=== PATIENT | male | born 1960 | race African-American/Black ===

== ENCOUNTER 2016-06-19 10:00 | Emergency (ER) | payer OTHER ==
[~2016-06-19] VITALS: Ht 195.6 cm; Wt 86.0 kg
[2016-06-19 10:03] VITALS: Ht 195.6 cm; Wt 86.0 kg
[2016-06-19] MEDS ORDERED: BACTDS PO (10:51)
[2016-06-19] MEDS ORDERED: IBUP-1542 PO (10:51)
--- NOTE | 2016-06-19 10:54 | ERD ---
ER Documentation Chief Complaint Date/Time DATE: 06/19/16 TIME: 10:52 Chief Complaint GENITAL PROBLEMS HPI This 55-year-old male presents with some genital lesions for last 3 weeks. It started approximately 1 week after unprotected intercourse. He has some sores on the under side of his glans area and a lesion at the base of his penis. There is tenderness and slight amount of discharge ulceration. He does have a history of herpes but says that it does not feel like herpes. ROS All systems reviewed and are negative except as per history of present illness. Medications Home Meds Active Scripts Ibuprofen* (Motrin*) 600 Mg Tab, 600 MG PO Q6, #15 TAB Prov:PHIL HERNANDEZ MD 06/19/16 Sulfamethoxazole-Trimethoprim* (Bactrim* DS) 800-160 Mg Tab, 1 TAB PO BID, #20 TAB Prov:PHIL HERNANDEZ MD 06/19/16 Allergies Allergies: Coded Allergies: No Known Allergy (Unverified , 06/19/16) PMhx/Soc History of Surgery: Yes (oral surgery) Anesthesia Reaction: No Hx Neurological Disorder: No Hx Respiratory Disorders: No Hx Cardiac Disorders: No Hx Psychiatric Problems: No Hx Miscellaneous Medical Probl: Yes (herpes) Hx Alcohol Use: No Hx Substance Use: Yes (daily Marijuana use) Hx Tobacco Use: No Smoking Status: Former smoker Physical Exam Vitals Vital Signs Date Time Temp Pulse Resp B/P Pulse Ox O2 Delivery O2 Flow Rate FiO2 06/19/16 10:03 97.6 73 18 134/89 99 Physical Exam Const: [] Alert, [id number] Head: Atraumatic Eyes: Normal Conjunctiva ENT: Normal External Ears, Nose and Mouth. Neck: Full range of motion..~ No meningismus. Resp: Clear to auscultation bilaterally Cardio: Regular rate and rhythm, no murmurs Abd: Soft, non tender, non distended. Normal bowel sounds Skin: No petechiae or rashes. General exam shows scabbed follicular pustule at the base of the penis on the pubis. There is a small open ulcerations on the underside of his glands which are tender. There is no induration, erythema , penile discharge appreciated. Back: No midline or flank tenderness Ext: No cyanosis, or edema Neur: Awake and alert Psych: Normal Mood and Affect Results 24 hrs Current Medications Medications (Trade) Dose Ordered Sig/Duarte Route PRN Reason Start Time Stop Time Status Last Admin Dose Admin Azithromycin (Zithromax) 2,000 mg ONCE ONCE PO 06/19/16 11:00 06/19/16 11:01 Procedures/MDM Patient presents with genital lesions which has the clinical appearance of folliculitis or staph infection. Given that he does have genital ulcers of uncertain etiology we treated for sepsis with 2 g Zithromax by mouth and RPR was obtained results pending. Urine is also sent for gonorrhea chlamydia. He will be treated with Bactrim at home instructions for further observation at home. He should follow-up with primary doctor, await lab results and return for new or worsening symptoms such as fevers, worsening redness, new or worsening symptoms as directed and aftercare instructions. Will defer treatment for gonorrhea currently until confirmatory test Departure Diagnosis: Primary Impression: Folliculitis Condition: Stable Patient Instructions: Folliculitis Additional Instructions: Lesions appear to likely be staph infection but we will treat and test for STD. STD results should be back within a week. Recheck for new or worsening symptoms with primary care doctor. PHIL HERNANDEZ MD Jun 19, 2016 10:54
[2016-06-19] MEDS ORDERED: AZITHROMYCIN 250 MG TAB PO ONE (11:00)
[2016-06-19 15:37] LABS: RAPID PLASMA REAGIN REACTIVE (NR)
== END 2016-06-19 11:15 | disposition home or self-care (01) ==
LOC: FTE 10:00
DX: L73.9 Follicular disorder, unspecified (principal); Z87.891 Personal history of nicotine dependence
CPT/HCPCS: 36415; 86592; 87591; Z7502; Z7610; 99283

== ENCOUNTER 2016-06-30 11:17 | Emergency (ER) | payer OTHER ==
[~2016-06-30] VITALS: Ht 195.6 cm; Wt 87.0 kg
[~2016-06-30 11:17] MED LIST: BACTDS PO; IBUP-1542 PO
[2016-06-30 11:30] VITALS: Ht 195.6 cm; Wt 87.0 kg
[2016-06-30] MEDS ORDERED: PENICILLIN G BENZ 2.4 MIL UNIT SYG IM ONE (13:30)
--- NOTE | 2016-06-30 13:56 | ERD ---
ER Documentation Chief Complaint Date/Time DATE: 06/30/16 TIME: 13:51 Chief Complaint RE CHECK HPI Patient is a 55-year-old male who was seen here last week and diagnosed with folliculitis around his genitals and he is taking Bactrim but he states getting no better. He is here today. The results of his lab tests. He states this all started after unprotected sex. He denies fever. He denies any bleeding or discharge from his penis. He states he has to ulcerated lesions on his penis. ROS All systems reviewed and are negative except as per history of present illness. Medications Home Meds Active Scripts Ibuprofen* (Motrin*) 600 Mg Tab, 600 MG PO Q6, #15 TAB Prov:PHIL HERNANDEZ MD 06/19/16 Sulfamethoxazole-Trimethoprim* (Bactrim* DS) 800-160 Mg Tab, 1 TAB PO BID, #20 TAB Prov:PHIL HERNANDEZ MD 06/19/16 Allergies Allergies: Coded Allergies: No Known Allergy (Unverified , 06/30/16) PMhx/Soc History of Surgery: Yes (oral surgery) Anesthesia Reaction: No Hx Neurological Disorder: No Hx Respiratory Disorders: No Hx Cardiac Disorders: No Hx Psychiatric Problems: No Hx Miscellaneous Medical Probl: Yes (herpes) Hx Alcohol Use: No Hx Substance Use: Yes (daily Marijuana use) Hx Tobacco Use: No Smoking Status: Unknown if ever smoked FmHx Family History: No diabetes Physical Exam Vitals Vital Signs Date Time Temp Pulse Resp B/P Pulse Ox O2 Delivery O2 Flow Rate FiO2 06/30/16 11:30 98.2 92 19 136/78 100 Physical Exam General: well developed, well nourished, alert, nontoxic, no distress Head: normocephalic, atraumatic Neck: Supple, nontender, no lymphadenopathy, no midline tenderness Oropharynx: no tonsilar erythema or edema, uvula midline, no exudates, no kissing tonsils, no drooling Respiratory: Clear to auscaultation bilaterally, speaks in full sentences, no use of accesory muscles or labored breathing, no rales, ronchi, or wheezing Cardiovascular: RRR, No murmurs GI: soft, non tender, non distended, negative murphys sign, negative mcburneys point tenderness, no cva tenderness bilaterally, no rebound or guarding : On the underside of the glans of the penis there is to her lesions, nontender, no bleeding or drainage, there are small palpable bumps at the base, no lymphadenopathy Results 24 hrs Current Medications Medications (Trade) Dose Ordered Sig/Duarte Route PRN Reason Start Time Stop Time Status Last Admin Dose Admin Penicillin G Benzathine (Bicillin La) 2,400,000 units ONCE ONCE IM 06/30/16 13:30 06/30/16 13:31 DC 06/30/16 13:40 Procedures/MDM His femoral male presents with lesion on his penis in his here for results of tests which showed he tested positive for syphilis. I reviewed the findings with Dr. Bennett by supervising physician who recommended penicillin G here in the emergency room. He was given this injection here. He was given outpatient follow-up to urology. He was instructed to avoid sexual contact until he is able to get his symptoms resolved and follow-up with urology. Recommended this patient follow up with her primary care doctor within 48 hours or return to the emergency room for any worsening of symptoms. However this time I do believe there is suitable for outpatient management. I answered all their questions and they agreed with the plan and were discharged home. Departure Diagnosis: Primary Impression: Syphilis Condition: Stable Patient Instructions: Syphilis Referrals: LIZA NEFF MD,KORY FRAZIER,TAMARA TUCKER,ART ORTEGA,KADEN CHENG,MONY HUMPHREYS,BARBARA ROYAL,BRANDO KHAN,JUAN HAUSER= ZOFIA DELEON SOROUSH ADAM RIOS,SAPPHIRE CHOW,BARBARA PITTMAN,JOHNATHON Marin M.D. Additional Instructions: Call your primary care doctor TOMORROW for an appointment during the next 1-2 days.See the doctor sooner or return here if your condition worsens before your appointment time.SPECIALIST: YOU HAVE A MEDICAL CONDITION WHICH REQUIRES YOU TO SEE A SPECIALIST WITHIN THE NEXT 1-2 DAYS. PLEASE FOLLOW UP WITH YOUR PRIMARY PHYSICIAN FOR REFFERAL.IF YOU DO NOT HAVE A PRIMARY CARE PHYSICIAN AND/ OR YOU CAN NOT AFFORD TO SEE A PHYSICIAN THE FOLLOWING RESOURCES HAVE BEEN SUPPLIED TO YOU. IT IS YOUR RESPONSIBILITY TO BE SEEN BY THE SPECIALIST ROBERT CHANDRA PA-C Jun 30, 2016 13:56
== END 2016-06-30 13:55 | disposition home or self-care (01) ==
LOC: FTE 11:17
DX: A53.9 Syphilis, unspecified (principal)
CPT/HCPCS: 96372; J0561; Z7502

== ENCOUNTER 2016-11-10 02:13 | Emergency (ER) | payer OTHER ==
[~2016-11-10] VITALS: Ht 195.6 cm; Wt 89.0 kg
[2016-11-10 02:25] VITALS: Ht 195.6 cm; Wt 89.0 kg
[2016-11-10 03:53] LABS: ADD UMIC YES; URINE BILIRUBIN (Dip) NEGATIVE (NEGATIVE); URINE BLOOD (Dip) TRACE (NEGATIVE); URINE COLOR LT. YELLOW (YELLOW); URINE GLUCOSE (Dip) NEGATIVE (NEGATIVE); URINE KETONES (Dip) NEGATIVE (NEGATIVE); URINE LEUKOCYTE ESTERASE (Dip) NEGATIVE (NEGATIVE); URINE NITRITE (Dip) NEGATIVE (NEGATIVE); URINE TOTAL PROTEIN (Dip) NEGATIVE (NEGATIVE); URINE UROBILINOGEN (Dip) 0.2 E.U./dL (0.1-1.0)
[2016-11-10] MEDS ORDERED: metroNIDAZOLE 500 MG TAB PO ONE (04:00)
[2016-11-10] MEDS ORDERED: CEFTRIAXONE 250 MG INJ IM ONE (04:00)
[2016-11-10] MEDS ORDERED: AZITHROMYCIN 250 MG TAB PO ONE (04:00)
--- NOTE | 2016-11-10 04:02 | ERD ---
ER Documentation Chief Complaint Date/Time DATE: 11/10/16 TIME: 04:01 Chief Complaint lower abd pain started 9 days ago, constipation per pt verbatim HPI This is a 56-year-old male who presents to the emergency room for evaluation of possible STD. The patient states that he had unprotected sex approximately 11 days ago and states that he has had mild burning with urination. The patient came to the ER for evaluation and is denying any bleeding or rashes or urethral discharge ROS All systems reviewed and are negative except as per history of present illness. Medications Home Meds Active Scripts Ibuprofen* (Motrin*) 600 Mg Tab, 600 MG PO Q6, #15 TAB Prov:PHIL HERNANDEZ MD 06/19/16 Sulfamethoxazole-Trimethoprim* (Bactrim* DS) 800-160 Mg Tab, 1 TAB PO BID, #20 TAB Prov:PHIL HERNANDEZ MD 06/19/16 Allergies Allergies: Coded Allergies: No Known Allergy (Unverified , 06/30/16) PMhx/Soc History of Surgery: Yes (oral surgery) Anesthesia Reaction: No Hx Neurological Disorder: No Hx Respiratory Disorders: No Hx Cardiac Disorders: No Hx Psychiatric Problems: No Hx Miscellaneous Medical Probl: Yes (herpes) Hx Alcohol Use: No Hx Substance Use: Yes (daily Marijuana use) Hx Tobacco Use: No Smoking Status: Never smoker Physical Exam Vitals Vital Signs Date Time Temp Pulse Resp B/P Pulse Ox O2 Delivery O2 Flow Rate FiO2 11/10/16 02:25 97.4 76 18 121/74 97 Physical Exam Const: No acute distress Head: Atraumatic Eyes: Normal Conjunctiva ENT: Normal External Ears, Nose and Mouth. Neck: Full range of motion..~ No meningismus. Resp: Clear to auscultation bilaterally Cardio: Regular rate and rhythm, no murmurs Abd: Soft, non tender, non distended. Normal bowel sounds Skin: No petechiae or rashes Back: No midline or flank tenderness Ext: No cyanosis, or edema Neur: Awake and alert Psych: Normal Mood and Affect Results 24 hrs Laboratory Tests Test 11/10/16 03:17 Urine Color LT. YELLOW Urine Clarity CLEAR Urine pH 6.0 Urine Specific [place] 1.010 Urine Ketones NEGATIVE Urine Nitrite NEGATIVE Urine Bilirubin NEGATIVE Urine Urobilinogen 0.2 E.U./dL Urine Leukocyte Esterase NEGATIVE Urine Microscopic RBC Pending Urine Microscopic WBC Pending Urine Hemoglobin TRACE Urine Glucose NEGATIVE% Urine Total Protein NEGATIVE Current Medications Medications (Trade) Dose Ordered Sig/Duarte Route PRN Reason Start Time Stop Time Status Last Admin Dose Admin Ceftriaxone Sodium (Rocephin) 250 mg ONCE ONCE IM 11/10/16 04:00 11/10/16 04:01 DC Metronidazole (Flagyl) 2,000 mg ONCE ONCE PO 11/10/16 04:00 11/10/16 04:01 DC Azithromycin (Zithromax) 1,000 mg ONCE ONCE PO 11/10/16 04:00 11/10/16 04:01 DC Procedures/MDM This 56-year-old male presents to the emergency room for evaluation of possible STD. The patient did have unprotected sex 11 days ago. Urinalysis is normal. The patient was treated with Rocephin, azithromycin, Flagyl and will be discharged at this time with instructions to use protection and he states that he is instructed his partner to also come to the emergency room. Departure Diagnosis: Primary Impression: STD exposure Condition: Stable KATHY ZEE DO Nov 10, 2016 04:02
[2016-11-10 04:17] LABS: SQUAMOUS EPITHELIAL CELL,UR RARE; URINE RBCS 0-2 /HPF (0)
== END 2016-11-10 04:58 | disposition home or self-care (01) ==
LOC: E/R 02:13
DX: Z20.2 Contact with and (suspected) exposure to infections with a predominantly sexual mode of transmission (principal); R40.2142 Coma scale, eyes open, spontaneous, at arrival to emergency department; R40.2252 Coma scale, best verbal response, oriented, at arrival to emergency department; R40.2362 Coma scale, best motor response, obeys commands, at arrival to emergency department
CPT/HCPCS: 81001; 96372; J0696; Z7502; Z7610

== ENCOUNTER 2017-03-28 04:44 | Emergency (ER) | payer OTHER ==
[~2017-03-28] VITALS: Ht 195.6 cm; Wt 87.0 kg
[2017-03-28 04:46] VITALS: Ht 195.6 cm; Wt 87.0 kg
[2017-03-28] MEDS ORDERED: ONDANSETRON 4 MG INJ IV STA (05:11)
[2017-03-28] MEDS ORDERED: morphine 4 MG/ML VIAL IV STA (05:11)
[2017-03-28] MEDS ORDERED: SOD CHLORIDE 0.9% 1,000 ML IV STA (05:11)
[2017-03-28 05:43] LABS: BASOPHILS % 0.2 % (0.0-2.0); EOSINOPHILS % 0.6 % (0.0-7.0); HEMATOCRIT 42.5 % (42.0-52.0); HEMOGLOBIN 13.9 g/dl (14.0-18.0); LYMPHOCYTES # 2.5 10^3/ul (0.8-2.9); LYMPHOCYTES % 39.7 % (15.0-51.0); MEAN CORPUSCULAR HEMOGLOBIN 31.4 pg (29.0-33.0); MEAN CORPUSCULAR HGB CONC 32.7 g/dl (32.0-37.0); MEAN CORPUSCULAR VOLUME 95.9 fl (82.0-101.0); MEAN PLATELET VOLUME 10.3 fl (7.4-10.4); MONOCYTE # 0.6 10^3/ul (0.3-0.9); MONOCYTES % 8.7 % (0.0-11.0); NEUTROPHIL # 3.2 10^3/ul (1.6-7.5); NEUTROPHILS % 50.5 % (39.0-77.0); PLATELET COUNT 212 10^3/UL (140-415); RED BLOOD COUNT 4.43 10^6/ul (4.70-6.10); RED CELL DISTRIBUTION WIDTH 13.8 % (11.5-14.5); WHITE BLOOD COUNT 6.3 10^3/ul (4.8-10.8)
[2017-03-28 05:46] LABS: ADD UMIC YES; UR ASCORBIC ACID NEGATIVE (NEGATIVE); UR BILIRUBIN (Dip) NEGATIVE (NEGATIVE); UR BLOOD (Dip) 2+ mg/dL (NEGATIVE); UR CLARITY CLEAR (CLEAR); UR COLOR YELLOW (YELLOW); UR GLUCOSE (Dip) NEGATIVE (NEGATIVE); UR KETONES (Dip) NEGATIVE (NEGATIVE); UR LEUKOCYTE ESTERASE (Dip) NEGATIVE Leu/ul (NEGATIVE); UR NITRITE (Dip) NEGATIVE (NEGATIVE); UR RBC 2 /HPF (0-5); UR SPECIFIC GRAVITY (Dip) 1.013 (1.003-1.030); UR TOTAL PROTEIN (Dip) NEGATIVE (NEGATIVE); UR UROBILINOGEN (Dip) NEGATIVE (NEGATIVE)
[2017-03-28 06:05] LABS: ALBUMIN 4.3 g/dl (3.3-4.9); ALBUMIN/GLOBULIN RATIO 1.3; BILIRUBIN,INDIRECT 0.3 mg/dl (0-1.1); BILIRUBIN,TOTAL 0.3 mg/dl (0.2-1.3); CALCIUM 9.6 mg/dl (8.4-10.2); CREATININE 1.02 mg/dl (0.61-1.24); POTASSIUM 4.9 mmol/L (3.5-5.1); TOTAL PROTEIN 7.6 g/dl (6.1-8.1)
[2017-03-28] MEDS ORDERED: AZITHROMYCIN 250 MG TAB PO STA (06:37)
[2017-03-28] MEDS ORDERED: CEFTRIAXONE 250 MG INJ IM STA (06:37)
--- NOTE | 2017-03-28 07:00 | ERD ---
ER Documentation Chief Complaint Date/Time DATE: 03/28/17 TIME: 06:57 Chief Complaint RLQ ab pain x 3 weeks,constant HPI This is a 56-year-old male who told the triage nurse that he has been having right lower quadrant pain for 3 weeks. However he states that the only reason he checked it is because he wants treatment for an STD. The patient does describe some bilateral lumbar back pain that radiates to the front but this is chronic and unchanged without bowel or bladder incontinence and/or retention. The patient states that he had unprotected sex and is now having a tingling sensation and possible discharge. The patient does have a history of STDs and genital herpes. He denies current outbreak. He would like to be treated for sexually transmitted disease. He denies any right lower quadrant abdominal pain nausea vomiting or diarrhea. ROS All systems reviewed and are negative except as per history of present illness. Allergies Allergies: Coded Allergies: ibuprofen (Verified Allergy, Unknown, 03/28/17) PMhx/Soc History of Surgery: Yes (oral surgery) Anesthesia Reaction: No Hx Neurological Disorder: No Hx Respiratory Disorders: No Hx Cardiac Disorders: No Hx Psychiatric Problems: No Hx Miscellaneous Medical Probl: Yes (herpes) Hx Alcohol Use: No Hx Substance Use: Yes (daily Marijuana use) Hx Tobacco Use: No Smoking Status: Never smoker FmHx Family History: No diabetes Physical Exam Vitals Vital Signs Date Time Temp Pulse Resp B/P Pulse Ox O2 Delivery O2 Flow Rate FiO2 03/28/17 04:46 96.8 80 18 116/69 97 Physical Exam General: Well developed, well nourished, no acute distress Head: Normocephalic, atraumatic. Eyes: Pupils equally reactive, EOM intact ENT: Moist mucous membranes Neck: Supple, no lymphadenopathy Respiratory: Lungs clear bilaterally, no distress Cardiovascular: RRR, no murmurs, rubs, or gallops Abdominal: Soft, non-tender, non-distended, no peritoneal signs : No inguinal hernia or lymphadenopathy, normal descended testicles without focal tenderness or swelling, no penile discharge or lesions noted. MSK: No edema, no unilateral swelling, 5/5 strength Neurologic: Alert and oriented, moving all extremities, normal speech, no focal weakness, no cerebellar signs Skin: No rash Psych: Normal mood Result Diagram: 03/28/1751003/28/17520 Results 24 hrs Laboratory Tests Test 03/28/17 05:11 03/28/17 05:21 03/28/17 05:30 White Blood Count 6.310^3/ul Red Blood Count 4.4310^6/ul Hemoglobin 13.9g/dl Hematocrit 42.5% Mean Corpuscular Volume 95.9fl Mean Corpuscular Hemoglobin 31.4pg Mean Corpuscular Hemoglobin Concent 32.7g/dl Red Cell Distribution Width 13.8% Platelet Count 00994^3/UL Mean Platelet Volume 10.3fl Neutrophils % 50.5% Lymphocytes % 39.7% Monocytes % 8.7% Eosinophils % 0.6% Basophils % 0.2% Nucleated Red Blood Cells % 0.0/100WBC Neutrophils # 3.210^3/ul Lymphocytes # 2.510^3/ul Monocytes # 0.610^3/ul Eosinophils # 0.010^3/ul Basophils # 0.010^3/ul Nucleated Red Blood Cells # 0.010^3/ul Sodium Level 145mmol/L Potassium Level 4.9mmol/L Chloride Level 106mmol/L Carbon Dioxide Level 29mmol/L Anion Gap 15 Blood Urea Nitrogen 10mg/dl Creatinine 1.02mg/dl Glucose Level 97mg/dl Calcium Level 9.6mg/dl Total Bilirubin 0.3mg/dl Direct Bilirubin 0.00mg/dl Indirect Bilirubin 0.3mg/dl Aspartate Amino Transf (AST/SGOT) 19IU/L Alanine Aminotransferase (ALT/SGPT) 31IU/L Alkaline Phosphatase 62IU/L Total Protein 7.6g/dl Albumin 4.3g/dl Globulin 3.30g/dl Albumin/Globulin Ratio 1.30 Lipase 121U/L Urine Color YELLOW Urine Clarity CLEAR Urine pH 5.0 Urine Specific [place] 1.013 Urine Ketones NEGATIVEmg/dL Urine Nitrite NEGATIVEmg/dL Urine Bilirubin NEGATIVEmg/dL Urine Urobilinogen NEGATIVEmg/dL Urine Leukocyte Esterase NEGATIVELeu/ul Urine Microscopic RBC 2/HPF Urine Microscopic WBC 0/HPF Urine Hemoglobin 2+mg/dL Urine Glucose NEGATIVEmg/dL Urine Total Protein NEGATIVEmg/dl Current Medications Medications (Trade) Dose Ordered Sig/Duarte Route PRN Reason Start Time Stop Time Status Last Admin Dose Admin Sodium Chloride (NS) 1,000 ml @ 1,000 mls/hr Q1H STAT IV 03/28/17 05:11 03/28/17 06:10 DC 03/28/17 05:40 Morphine Sulfate (morphine) 4 mg ONCE STAT IV 03/28/17 05:11 03/28/17 05:12 DC 03/28/17 05:40 Ondansetron HCl (Zofran Inj) 4 mg ONCE STAT IV 03/28/17 05:11 03/28/17 05:12 DC 03/28/17 05:40 Azithromycin (Zithromax) 1,000 mg ONCE STAT PO 03/28/17 06:37 03/28/17 06:40 DC Ceftriaxone Sodium (Rocephin) 250 mg ONCE STAT IM 03/28/17 06:37 03/28/17 06:40 DC Procedures/MDM LAB INTERPRETATION: No leukocytosis, normal LFTs and lipase MEDICAL DECISION MAKING: The patient presents initially reporting that he has right lower quadrant abdominal pain. A workup was initiated by the overnight physician based on this information. However he reports to me that he does not have right lower quadrant abdominal pain. He states the only reason he checked and was to have sexually transmitted disease treatment. The patient has a history of STD with high risk sexual behavior. I believe empiric therapy would be appropriate. A urine gonorrhea and Chlamydia culture will be sent. Patient has no evidence of systemic illness. His back pain is chronic and unchanged. The patient's low back pain is unlikely related to serious etiology. The patient exhibits no clinical signs or symptoms and has no history or risk factors to suggest cauda equina, cord compression, epidural abscess, epidural hematoma, acute aortic aneurysm or dissection. ER COURSE: The patient was given ceftriaxone and azithromycin. His abdominal exam is benign. The patient is safe for discharge. I kept the patient and/or family informed of laboratory and diagnostic imaging results throughout the emergency room course. DISPOSITION PLAN: We discussed follow up with the patient's primary care doctor within 24 to 48 hours as needed. We also discussed return to the emergency room for worsening symptoms or worsening condition. Outpatient referral: [None required] Discharge Medications: None required Departure Diagnosis: Primary Impression: STD (male) Additional Impression: Chronic back pain Back pain location: back pain in unspecified location Back pain laterality: bilateral Qualified Code: M54.9 - Chronic bilateral back pain, unspecified back location Condition: Stable Patient Instructions: What Are Sexually Transmitted Diseases (STDs)? Additional Instructions: Call your primary care doctor TOMORROW for an appointment during the next 1 WEEK.Tell the staff research associate that you were referred from this facility.See the doctor sooner or return here if your condition worsens before your appointment time. ASHWIN ORO MD Mar 28, 2017 07:00
== END 2017-03-28 07:22 | disposition home or self-care (01) ==
LOC: E/R 04:44
DX: A64 Unspecified sexually transmitted disease (principal); M54.9 Dorsalgia, unspecified
CPT/HCPCS: 80053; 81001; 83690; 85025; 87591; J0696; J2270; J2405; J7030; Z7610; 36415; 96372; 96374; 96375

== ENCOUNTER 2018-01-20 20:35 | Emergency (ER) | END 2018-01-21 00:24 | disposition left against medical advice (07) ==

== ENCOUNTER 2018-03-14 09:08 | Emergency (ER) | END 2018-03-14 10:20 | disposition home or self-care (01) ==

== ENCOUNTER 2018-05-09 08:29 | Emergency (ER) | END 2018-05-09 11:14 | disposition left against medical advice (07) ==